=== PATIENT | female | born 1995 | race Caucasian/White ===

== ENCOUNTER 2022-11-16 22:18 | Emergency (ER) | payer BC ==
[~2022-11-16] VITALS: Ht 162.6 cm; Wt 56.6 kg
[2022-11-16 22:36] VITALS: TEMP 99.1
[2022-11-16 22:47] LABS: EOSINOPHILS # (AUTO) 0.3 X10'3 (0-0.9); MEAN CORPUSCULAR HEMOGLOBIN 30.7 PG (27.0-31.0)
[2022-11-16 22:48] LABS: BASOPHILS # (AUTO) 0.1 X10'3 (0-0.2); BASOPHILS % (AUTO) 1.3 % (0-1); EOSINOPHILS % (AUTO) 3.3 % (0-6); HEMOGLOBIN 14.5 g/dl (12.0-16.0); LYMPHOCYTES # (AUTO) 4.4 X10'3 (1.1-4.8); LYMPHOCYTES % (AUTO) 48.8 % (21-51); MEAN CORPUSCULAR HGB CONC 33.7 g/dL (33.0-36.5); MEAN CORPUSCULAR VOLUME 90.9 FL (78-98); MEAN PLATELET VOLUME 7.7 FL (7.4-10.4); MONOCYTES # (AUTO) 0.5 X10'3 (0-0.9); MONOCYTES % (AUTO) 5.2 % (2-12); NEUTROPHILS # (AUTO) 3.7 X10'3 (1.8-7.7); NEUTROPHILS % (AUTO) 41.4 % (42-75); PLATELET COUNT 301 X10'3 (140-440); RED BLOOD COUNT 4.73 X10'6 (4.20-5.60); RED CELL DISTRIBUTION WIDTH 13.6 % (11.5-14.5)
[2022-11-16 22:55] LABS: ALANINE AMINOTRANSFERASE 20 U/L (12-78); ALBUMIN 4.8 G/DL (3.4-5.0); ALBUMIN/GLOBULIN RATIO 1.3 (1.1-1.5); ALKALINE PHOSPHATASE 48 IU/L (46-116); ANION GAP 13 (8-16); ASPARTATE AMINO TRANSFERASE 15 U/L (10-37); BILIRUBIN,TOTAL 0.7 MG/DL (0.1-1.0); BLOOD UREA NITROGEN 8 MG/DL (7-18); BUN/CREATININE RATIO 9.9 (10.0-20.0); CALCIUM 9.4 MG/DL (8.5-10.1); CHLORIDE 102 MMOL/L (99-107); CREATININE 0.81 MG/DL (0.40-0.90); GLUCOSE 126 MG/DL (70-104); POTASSIUM 3.2 MMOL/L (3.5-5.1); SODIUM 139 MMOL/L (135-145); TOTAL CARBON DIOXIDE 23.7 MMOL/L (24-32); TOTAL PROTEIN 8.5 G/DL (6.4-8.2); eCRCL 89 ML/MIN; eGFR 84 ML/MIN
[2022-11-16 23:13] LABS: PRO BRAIN NATRIURETIC PEPTIDE < 30 PG/ML (0-125); THYROID STIMULATING HORMONE 2.99 ulU/ml (0.34-4.50)
[2022-11-16] MEDS ORDERED: normal saline 1000ML IV soln IVB ONE (23:55)
[2022-11-17 00:14] LABS: D-DIMER < 0.19 MG/L FEU (0-0.50)
[2022-11-17 01:59] VITALS: BP 128/89; PULSE 89; RESP 16; O2SAT 99
== END 2022-11-17 02:03 | disposition home or self-care (01) ==
LOC: ER 22:19
DX: R07.9 Chest pain, unspecified (principal); R00.0 Tachycardia, unspecified; Z20.822 Contact with and (suspected) exposure to COVID-19
CPT/HCPCS: 36415; 71045; 80053; 83880; 84443; 84484; 85025; 85379; 87811; 93005; 96360; 99285; J7030